=== PATIENT | male | born 1955 | race Two or more races ===

== ENCOUNTER 2016-11-10 17:38 | Emergency (ER) | payer SELFPAY ==
[2016-11-10 17:45] VITALS: BP 139/85; PULSE 64; TEMP 97.5; BMI 33.7
[2016-11-10] MEDS ORDERED: IBUPROFEN 600 MG TABLET (FP) PO ONE ×2 (18:28→18:30)
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
== END 2016-11-10 18:32 | disposition home or self-care (01) ==
LOC: JERFT 17:38
DX: S16.1XXA Strain of muscle, fascia and tendon at neck level, initial encounter (principal); V59.59XA Passenger in pick-up truck or van injured in collision with other motor vehicles in traffic accident, initial encounter; Y92.414 Local residential or business street as the place of occurrence of the external cause; Y93.89 Activity, other specified; Y99.8 Other external cause status
CPT/HCPCS: 99281-25